=== PATIENT | female | born 1960 | race African-American/Black ===

== ENCOUNTER 2023-06-25 04:37 | Day surgery (SDC) | payer OTHER ==
[2023-06-21 15:49] VITALS: BMI 25.0
[2023-06-25] MEDS ORDERED: MIDAZOLAM HCL 2 MG/2 ML SINGLE DOSE VIAL ONE ×2 (11:51→12:07)
[2023-06-25] MEDS ORDERED: SUCCINYLCHOLINE CHLORIDE 200 MG/10 ML SYRINGE ONE (12:02)
[2023-06-25] MEDS ORDERED: ceFAZolin SODIUM 1 GM VIAL IVPB ONE (12:05)
[2023-06-25] MEDS ORDERED: PROPOFOL 20 ML ONE (12:07)
[2023-06-25] MEDS ORDERED: KETAMINE HCL 200 MG/20 ML VIAL ONE (12:08)
[2023-06-25] MEDS ORDERED: BUPIVACAINE HCL/PF 0.25% (2.5MG/ML) 10 ML VIAL IJ ONE (12:15)
[2023-06-25] MEDS ORDERED: LIDOCAINE HCL 1% PRESERVATIVE FREE - 30ML VIAL IJ ONE (12:15)
[2023-06-25] MEDS ORDERED: BENZOIN/ALOE VERA/STORAX/TOLU 58 ML BOTTLE TP ONE (12:58)
[2023-06-25] MEDS ORDERED: ONDANSETRON 4 MG/2 ML VIAL IVPUSH PRN (13:39)
[2023-06-25] MEDS ORDERED: oxyCODONE HCL 5 MG TABLET PO PRN (13:39)
[2023-06-25] MEDS ORDERED: LACTATED RINGERS SOLUTION 1,000 ML IV SCH (13:45)
[2023-06-25 15:35] VITALS: BP 123/74; PULSE 93; RESP 21; TEMP 98.3
== END 2023-06-25 15:58 | disposition home or self-care (01) ==
LOC: JASU-SURG 04:37
PROVIDERS: ATTEND Physical Medicine & Rehabilitation
PROC: 00HU3MZ Insertion of Neurostimulator Lead into Spinal Canal, Percutaneous Approach (ICD-10-PCS; principal; 2023-06-25 11:30)
DX: M54.16 Radiculopathy, lumbar region (principal); M48.061 Spinal stenosis, lumbar region without neurogenic claudication; M96.1 Postlaminectomy syndrome, not elsewhere classified
CPT/HCPCS: 63650; 95972; C1897; 76000-TC-FY; 94760